=== PATIENT | female | born 2000 | race Caucasian/White ===

== ENCOUNTER 2019-05-14 09:01 | Emergency (ER) | payer SELFPAY ==
[~2019-05-14] VITALS: Ht 157.5 cm; Wt 42.4 kg
[2019-05-14 09:07] VITALS: Ht 157.5 cm; Wt 42.4 kg
[2019-05-14 10:07] LABS: BASOPHIL % 0.5 % (0-2); PLATELET COUNT 190 x10^3mcL (130-400); RED CELL DISTRIBUTION WIDTH 12.6 % (11.5-14.5)
[2019-05-14 10:08] LABS: microscopic required? NO
[2019-05-14 10:20] LABS: urine erythrocyte NEGATIVE (NEGATIVE)
[2019-05-14 10:29] LABS: AMPHETAMINE QUAL UR NONE DETECTED (See below)
[2019-05-14 10:33] LABS: CALCIUM 8.6 mg/dL (8.5-10.1); CARBON DIOXIDE 23.8 mmol/L (21-32); CHLORIDE SERUM 103 mmol/L (98-107); CREATININE SERUM 0.6 mg/dL (0.6-1.0); GFR1 > 60 mL/min; GLUCOSE SERUM 84 mg/dL (74-106); POTASSIUM SERUM 3.9 mmol/L (3.5-5.1); SODIUM SERUM 137 mmol/L (136-145)
[2019-05-14 10:39] LABS: ALBUMIN 4.2 g/dL (3.4-5.0); ALKALINE PHOSPHATASE 64 U/L (46-116); ALT/SGPT 12 U/L (14-59); AST/SGOT 20 U/L (15-37); BILIRUBIN TOTAL 0.7 mg/dL (0.20-1.00); CHOLESTEROL 140 mg/dL (<200); CHOLESTEROL/HDL RATIO 2.6; HDL CHOLESTEROL 54 mg/dL (40-60); LIPASE 92 IU/L (73-393); TOTAL PROTEIN, SERUM 7.8 g/dL (6.4-8.2); TRIGLYCERIDES 42 mg/dL (<150)
[2019-05-14 10:46] LABS: FREE T4 1.14 ng/dL (0.76-1.46); T3 TOTAL 1.04 ng/mL; T4(THYROXINE) 8.5 ug/dL (4.7-13.3)
[2019-05-14 11:36] VITALS: BP 101/60
== END 2019-05-14 11:36 | disposition home or self-care (01) ==
LOC: ED 09:01
PROVIDERS: Specialist
DX: R07.89 Other chest pain (principal)
CPT/HCPCS: 83880; 84439; J7030; Q0092